=== PATIENT | male | born 1980 | race Caucasian/White ===

== ENCOUNTER 2017-12-12 10:21 | Inpatient (IN) | payer BC, MEDICAID ==
[~2017-12-12] VITALS: Ht 193 cm; Wt 126.7 kg
[2017-12-12] MEDS ORDERED: SODIUM CHLORIDE 0.9% 1,000ML IVBOLUS ONE (11:00)
[2017-12-12] MEDS ORDERED: VANCOMYCIN 2,100 MG in SODIUM CHLORIDE 0.9% 500 ML IV ONE (11:00)
[2017-12-12] MEDS ORDERED: PIPERACILLIN/TAZO/PMX 3.375GM 50 ML IVPB ONE (11:00)
[2017-12-12] MEDS ORDERED: VANCOMYCIN PER PHARMACY MC ONE (11:00)
[2017-12-12 11:20] LABS: BASOPHILS # (AUTO) 0.07 x10^3/uL (0-0.1); BASOPHILS % (AUTO) 1 % (0-1); EOSINOPHILS # (AUTO) 0.11 x10^3/uL (0-0.4); EOSINOPHILS % (AUTO) 1 % (1-7); LYMPHOCYTES # (AUTO) 1.95 x10^3/uL (1-3.4); LYMPHOCYTES % (AUTO) 15 % (22-44); MD NO; MEAN CORPUSCULAR HEMOGLOBIN 29.7 pg (27.5-34.5); MEAN CORPUSCULAR HGB CONC 34.3 g/dL (33.2-36.2); MEAN CORPUSCULAR VOLUME 86.7 fL (81-97); MEAN PLATELET VOLUME 9.4 fL (7.4-10.4); MONOCYTES # (AUTO) 0.86 x10^3/uL (0.2-0.8); MONOCYTES % (AUTO) 7 % (2-9); NEUTROPHILS # (AUTO) 10.29 x10^3/uL (1.8-6.8); NEUTROPHILS % (AUTO) 78 % (42-75); PLATELET COUNT 269 x10^3/uL (130-400); RED BLOOD COUNT 5.26 x10^6/uL (4.38-5.82); RED CELL DISTRIBUTION WIDTH 12.9 % (9.4-14.8)
[2017-12-12 11:32] LABS: ALANINE AMINOTRANSFERASE 40 U/L (12-78); ALBUMIN 3.4 g/dL (3.4-5.0); ANION GAP 9 mmol/L (5-15); CHLORIDE 103 mmol/L (98-107); CREATININE 0.96 mg/dL (0.7-1.3)
[2017-12-12 11:34] LABS: ALKALINE PHOSPHATASE 76 U/L (45-117); BILIRUBIN,TOTAL 0.8 mg/dL (0.2-1.0); TOTAL PROTEIN 8.3 g/dL (6.4-8.2)
[2017-12-12] MEDS ORDERED: PIPERACILLIN/TAZO/PMX 3.375GM 50 ML ONE (12:24)
[2017-12-12] MEDS ORDERED: ONDANSETRON ODT 4 MG PO PRN (13:00)
[2017-12-12] MEDS ORDERED: DOCUSATE 100 MG CAPSULE PO PRN (13:00)
[2017-12-12] MEDS ORDERED: hydrALAzine 20 MG/ML, 1ML IVPush PRN (13:00)
[2017-12-12] MEDS ORDERED: TRAZODONE 50MG TABLET PO PRN (13:00)
[2017-12-12] MEDS ORDERED: ACETAMINOPHEN 325 MG TABLET PO PRN (13:00)
[2017-12-12] MEDS ORDERED: ONDANSETRON 2MG/ML, 2ML IVPush PRN (13:00)
[2017-12-12] MEDS ORDERED: BISACODYL 10 MG SUPP PR PRN (13:00)
[2017-12-12 13:03] VITALS: BP 137/91
[2017-12-12 13:40] VITALS: BP 137/91
[2017-12-12 13:46] LABS: HCT (SEDRATE) 45.5 % (39.2-51.8)
[2017-12-12 14:05] LABS: FREE T4 (FREE THYROXINE) 1.24 ng/dL (0.76-1.46); THYROID STIMULATING HORMONE 1.81 mIU/L (0.358-3.740)
[2017-12-12] MEDS: ENOXAPARIN 40 MG/0.4 ML SQ SCH (15:59)
[2017-12-12] MEDS: NS + 20MEQ KCL 1,000 ML IV SCH (15:59)
[2017-12-12] MEDS: INSULIN LISPRO 100 UNITS/ML, PEN SQ-INSULIN SCH ×2 (17:16→20:57)
[2017-12-12 19:18] VITALS: BP 136/92
[2017-12-12] MEDS: FAMOTIDINE 20 MG TABLET PO SCH (20:55)
[2017-12-13 01:00] VITALS: BP 139/95
[2017-12-13] MEDS: NS + 20MEQ KCL 1,000 ML IV SCH ×2 (04:04→16:46)
[2017-12-13 05:21] LABS: ANION GAP 8 mmol/L (5-15); CALCIUM 8.5 mg/dL (8.5-10.1); CHLORIDE 106 mmol/L (98-107)
[2017-12-13 05:25] LABS: CHOL/HDL RATIO 4.4; CHOLESTEROL, TOTAL 137 mg/dL (140-239); CREATININE 0.89 mg/dL (0.7-1.3); HDL CHOL % 23 % (26-37); HDL CHOLESTEROL (DIRECT) 31 mg/dL (40-60); LDL CHOLESTEROL,CALCULATED 83 mg/dL (54-169); LDL/HDL RATIO 2.7 (0.5-3.0); TRIGLYCERIDES 115 mg/dL (50-200); VLDL CHOLESTEROL 23 mg/dL (0-25)
[2017-12-13 05:30] LABS: BASOPHILS # (AUTO) 0.03 x10^3/uL (0-0.1); BASOPHILS % (AUTO) 0 % (0-1); EOSINOPHILS # (AUTO) 0.15 x10^3/uL (0-0.4); EOSINOPHILS % (AUTO) 2 % (1-7); LYMPHOCYTES # (AUTO) 1.85 x10^3/uL (1-3.4); LYMPHOCYTES % (AUTO) 22 % (22-44); MD NO; MEAN CORPUSCULAR HEMOGLOBIN 29.9 pg (27.5-34.5); MEAN CORPUSCULAR HGB CONC 34.1 g/dL (33.2-36.2); MEAN CORPUSCULAR VOLUME 87.7 fL (81-97); MEAN PLATELET VOLUME 9.2 fL (7.4-10.4); MONOCYTES # (AUTO) 0.74 x10^3/uL (0.2-0.8); MONOCYTES % (AUTO) 9 % (2-9); NEUTROPHILS # (AUTO) 5.65 x10^3/uL (1.8-6.8); NEUTROPHILS % (AUTO) 67 % (42-75); PLATELET COUNT 259 x10^3/uL (130-400); RED CELL DISTRIBUTION WIDTH 12.9 % (9.4-14.8)
[2017-12-13 07:15] VITALS: BP 146/76
[2017-12-13] MEDS: HYDROcodone/APAP 5/325 TABLET PO PRN ×2 (07:59→18:28)
[2017-12-13] MEDS: FAMOTIDINE 20 MG TABLET PO SCH ×2 (07:59→21:21)
[2017-12-13] MEDS: INSULIN LISPRO 100 UNITS/ML, PEN SQ-INSULIN SCH ×4 (07:59→21:21)
[2017-12-13] MEDS: SENNA/DOCUSATE TABLET PO SCH (09:00)
[2017-12-13 12:31] VITALS: BP 146/94
[2017-12-13] MEDS: ENOXAPARIN 40 MG/0.4 ML SQ SCH (13:48)
[2017-12-13] MEDS ORDERED: VANCOMYCIN PER PHARMACY MC PRN (14:30)
[2017-12-13] MEDS ORDERED: PHARMACOKINETIC CONSULTATION MC ONE (15:00)
[2017-12-13] MEDS ORDERED: PHARMACOKINETIC MONITORING MC PRN (15:00)
[2017-12-13 19:26] VITALS: BP 137/89
[2017-12-14 02:36] VITALS: BP 136/94
[2017-12-14] MEDS: VANCOMYCIN 2,000 MG in SODIUM CHLORIDE 0.9% 500 ML IV SCH ×2 (03:22→15:17)
[2017-12-14 05:39] LABS: BASOPHILS # (AUTO) 0.02 x10^3/uL (0-0.1); BASOPHILS % (AUTO) 0 % (0-1); EOSINOPHILS # (AUTO) 0.21 x10^3/uL (0-0.4); EOSINOPHILS % (AUTO) 3 % (1-7); LYMPHOCYTES # (AUTO) 1.82 x10^3/uL (1-3.4); LYMPHOCYTES % (AUTO) 22 % (22-44); MD NO; MEAN CORPUSCULAR HEMOGLOBIN 30.5 pg (27.5-34.5); MEAN CORPUSCULAR HGB CONC 34.9 g/dL (33.2-36.2); MEAN CORPUSCULAR VOLUME 87.6 fL (81-97); MONOCYTES # (AUTO) 0.72 x10^3/uL (0.2-0.8); MONOCYTES % (AUTO) 9 % (2-9); NEUTROPHILS # (AUTO) 5.48 x10^3/uL (1.8-6.8); NEUTROPHILS % (AUTO) 66 % (42-75); PLATELET COUNT 259 x10^3/uL (130-400); RED BLOOD COUNT 4.56 x10^6/uL (4.38-5.82)
[2017-12-14 05:47] LABS: ANION GAP 7 mmol/L (5-15); CALCIUM 8.5 mg/dL (8.5-10.1); CHLORIDE 107 mmol/L (98-107); CREATININE 0.79 mg/dL (0.7-1.3)
[2017-12-14] MEDS: NS + 20MEQ KCL 1,000 ML IV SCH ×2 (05:50→23:00)
[2017-12-14] MEDS: HYDROcodone/APAP 5/325 TABLET PO PRN ×3 (05:52→21:07)
[2017-12-14 07:15] VITALS: BP 136/89
[2017-12-14] MEDS: FAMOTIDINE 20 MG TABLET PO SCH ×2 (08:38→21:01)
[2017-12-14] MEDS: INSULIN LISPRO 100 UNITS/ML, PEN SQ-INSULIN SCH ×4 (08:38→21:02)
[2017-12-14] MEDS: SENNA/DOCUSATE TABLET PO SCH (08:39)
[2017-12-14] MEDS: ENOXAPARIN 40 MG/0.4 ML SQ SCH (11:53)
[2017-12-14 14:53] LABS: HCT (SEDRATE) 44.2 % (39.2-51.8)
[2017-12-14 15:15] VITALS: BP 129/86
[2017-12-14 19:04] VITALS: BP 134/88
[2017-12-15 01:12] VITALS: BP 129/82
[2017-12-15] MEDS: VANCOMYCIN 2,000 MG in SODIUM CHLORIDE 0.9% 500 ML IV SCH ×3 (03:51→16:50)
[2017-12-15 05:32] LABS: BASOPHILS # (AUTO) 0.02 x10^3/uL (0-0.1); BASOPHILS % (AUTO) 0 % (0-1); EOSINOPHILS # (AUTO) 0.41 x10^3/uL (0-0.4); EOSINOPHILS % (AUTO) 5 % (1-7); LYMPHOCYTES # (AUTO) 1.63 x10^3/uL (1-3.4); LYMPHOCYTES % (AUTO) 21 % (22-44); MD NO; MEAN CORPUSCULAR HEMOGLOBIN 29.9 pg (27.5-34.5); MEAN CORPUSCULAR HGB CONC 34.3 g/dL (33.2-36.2); MEAN CORPUSCULAR VOLUME 87.1 fL (81-97); MEAN PLATELET VOLUME 8.6 fL (7.4-10.4); MONOCYTES # (AUTO) 0.79 x10^3/uL (0.2-0.8); MONOCYTES % (AUTO) 10 % (2-9); NEUTROPHILS # (AUTO) 5.03 x10^3/uL (1.8-6.8); NEUTROPHILS % (AUTO) 64 % (42-75); PLATELET COUNT 269 x10^3/uL (130-400); RED BLOOD COUNT 4.68 x10^6/uL (4.38-5.82); RED CELL DISTRIBUTION WIDTH 12.6 % (9.4-14.8)
[2017-12-15 05:36] LABS: CHLORIDE 104 mmol/L (98-107)
[2017-12-15 05:41] LABS: ANION GAP 8 mmol/L (5-15); CALCIUM 8.7 mg/dL (8.5-10.1); CREATININE 0.84 mg/dL (0.7-1.3)
[2017-12-15 06:50] VITALS: BP 138/93
[2017-12-15] MEDS: SENNA/DOCUSATE TABLET PO SCH (09:00)
[2017-12-15] MEDS: FAMOTIDINE 20 MG TABLET PO SCH ×2 (09:23→21:25)
[2017-12-15] MEDS: INSULIN LISPRO 100 UNITS/ML, PEN SQ-INSULIN SCH ×4 (09:23→21:26)
[2017-12-15] MEDS: HYDROcodone/APAP 5/325 TABLET PO PRN ×2 (12:17→21:34)
[2017-12-15] MEDS: ENOXAPARIN 40 MG/0.4 ML SQ SCH (13:23)
[2017-12-15 13:48] VITALS: BP 135/87
[2017-12-15 19:08] VITALS: BP 147/79
[2017-12-16 01:06] VITALS: BP 142/76
[2017-12-16 04:41] LABS: BASOPHILS # (AUTO) 0.04 x10^3/uL (0-0.1); BASOPHILS % (AUTO) 0 % (0-1); EOSINOPHILS # (AUTO) 0.42 x10^3/uL (0-0.4); EOSINOPHILS % (AUTO) 5 % (1-7); LYMPHOCYTES # (AUTO) 2.01 x10^3/uL (1-3.4); LYMPHOCYTES % (AUTO) 25 % (22-44); MD NO; MEAN CORPUSCULAR HEMOGLOBIN 29.8 pg (27.5-34.5); MEAN CORPUSCULAR HGB CONC 34.3 g/dL (33.2-36.2); MEAN CORPUSCULAR VOLUME 86.9 fL (81-97); MEAN PLATELET VOLUME 8.4 fL (7.4-10.4); MONOCYTES # (AUTO) 0.77 x10^3/uL (0.2-0.8); MONOCYTES % (AUTO) 10 % (2-9); NEUTROPHILS # (AUTO) 4.69 x10^3/uL (1.8-6.8); NEUTROPHILS % (AUTO) 59 % (42-75); PLATELET COUNT 304 x10^3/uL (130-400); RED BLOOD COUNT 4.85 x10^6/uL (4.38-5.82); RED CELL DISTRIBUTION WIDTH 12.3 % (9.4-14.8)
[2017-12-16 04:55] LABS: ANION GAP 8 mmol/L (5-15); CHLORIDE 105 mmol/L (98-107)
[2017-12-16 04:57] LABS: CREATININE 0.72 mg/dL (0.7-1.3)
[2017-12-16] MEDS: VANCOMYCIN 2,000 MG in SODIUM CHLORIDE 0.9% 500 ML IV SCH ×2 (05:00→12:56)
[2017-12-16 05:05] LABS: VANCOMYCIN,TROUGH 8.7 mcg/mL (5.0-10.0)
[2017-12-16 08:20] VITALS: BP 149/96
[2017-12-16] MEDS: INSULIN LISPRO 100 UNITS/ML, PEN SQ-INSULIN SCH ×4 (08:32→21:06)
[2017-12-16] MEDS: FAMOTIDINE 20 MG TABLET PO SCH ×2 (08:33→20:58)
[2017-12-16] MEDS: SENNA/DOCUSATE TABLET PO SCH (08:37)
[2017-12-16] MEDS: HYDROcodone/APAP 5/325 TABLET PO PRN ×3 (12:08→21:46)
[2017-12-16] MEDS: ENOXAPARIN 40 MG/0.4 ML SQ SCH (13:09)
[2017-12-16 15:09] VITALS: BP 120/83
[2017-12-16 19:02] VITALS: BP 121/81
[2017-12-17] MEDS: VANCOMYCIN 2,000 MG in SODIUM CHLORIDE 0.9% 500 ML IV SCH ×2 (01:17→13:35)
[2017-12-17 01:20] VITALS: BP 116/78
[2017-12-17 04:42] LABS: HCT (SEDRATE) 43.8 % (39.2-51.8)
[2017-12-17] MEDS: HYDROcodone/APAP 5/325 TABLET PO PRN (07:07)
[2017-12-17 07:53] VITALS: BP 129/88
[2017-12-17] MEDS: FAMOTIDINE 20 MG TABLET PO SCH (08:33)
[2017-12-17] MEDS: INSULIN LISPRO 100 UNITS/ML, PEN SQ-INSULIN SCH ×3 (08:34→16:10)
[2017-12-17] MEDS: SENNA/DOCUSATE TABLET PO SCH (08:39)
[2017-12-17] MEDS ORDERED: INSULIN GLARGINE 100 UNITS/ML, PEN SQ-INSULIN SCH (09:00)
[2017-12-17 13:33] VITALS: BP 129/86
[2017-12-17] MEDS: ENOXAPARIN 40 MG/0.4 ML SQ SCH (13:35)
[2017-12-17] MEDS ORDERED: CEPH-368 PO ×2 (14:14→14:38)
[2017-12-17] MEDS ORDERED: LANC1COM XX (14:14)
[2017-12-17] MEDS ORDERED: SULF-169 PO ×2 (14:14→14:38)
[2017-12-17] MEDS ORDERED: INSU100I11 SQ-INSULIN ×2 (14:14→14:38)
[2017-12-17] MEDS ORDERED: INSU100I13 SQ-INSULIN ×2 (14:14→14:38)
[2017-12-17] MEDS ORDERED: BLOO1EAC91 XX (14:14)
== END 2017-12-17 17:11 | disposition home or self-care (01) | DRG 872 ==
LOC: ED 10:55 → EDIP 11:44 → 3NE 13:02 → DCLOUNGE 12-17 16:55
PROVIDERS: ADMIT Internal Medicine; ATTEND Internal Medicine
DX: A41.9 Sepsis, unspecified organism (principal); E11.65 Type 2 diabetes mellitus with hyperglycemia; L03.116 Cellulitis of left lower limb; E66.9 Obesity, unspecified; K59.00 Constipation, unspecified; M77.30 Calcaneal spur, unspecified foot; Z82.49 Family history of ischemic heart disease and other diseases of the circulatory system; Z83.3 Family history of diabetes mellitus; Z87.891 Personal history of nicotine dependence
CPT/HCPCS: 36415; 80048; 80053; 80061; 80202; 82962; 83036; 83605; 84145; 84439; 84443; 85025; 85651; 86140; 87040; 96365; J1650; J2543; J3370; J3480; J1815; J7030; J7040